=== PATIENT | female | born 1950 | race Caucasian/White ===

== ENCOUNTER 2017-09-25 11:21 | Observation (INO) ==
[2017-09-25 12:28] LABS: Basophils # 0.1 10*3/uL (0.0-0.2); Basophils % 0.7 % (0.0-0.8); Eosinophils # 0.2 10*3/uL (0.0-0.87); Eosinophils % 2.6 % (0.00-10.9); Hematocrit 33.9 VOL% (35.7-47.0); Hemoglobin 10.5 GM/DL (12.0-16.0); Immature Granulocytes % 0.7 %; Immature Granulocytes Absolute 0.05 #; Lymphocytes % 26.7 % (21.3-54.2); Mean Corpuscular Hemoglobin 32 PG (27-34); Mean Corpuscular Volume 103.4 FL (87-102); Mean Platelet Volume 10.7 FL (9.6-12.0); Monocytes # 0.5 10*3/uL (0.11-0.8); Monocytes % 6.6 % (1.7-12.7); Neutrophils # 4.6 10*3/uL (1.4-7.4); Neutrophils % 62.7 % (38.7-73.9); Platelet Count 330 T/CUMM (130-400); Red Blood Count 3.28 MC/CUMM (3.8-5.5); Red Cell Distribution Width 13.7 % (9.3-17.3); White Blood Count 7.4 T/CUMM (4-12)
[2017-09-25 12:31] LABS: Apearance,Urine CLEAR (Clear); Bilirubin,Urine Negative (Negative); Blood, Urine Small mg/dL (Negative); Glucose,Urine (UA) Negative (Negative); Ketones,Urine Negative (Negative); Nitrite,Urine Negative (Negative); Protein,Urine Negative; RBC,Urine 1 /HPF (0-4); Urine Color Straw (Yellow); Urine Specific Gravity 1.008 (1.001-1.035); Urine Urobilinogen < 2.0 EU/DL (0.2-1.0)
[2017-09-25 13:13] LABS: Alanine Aminotransferase 26 U/L (13-56); Albumin 4.2 G/DL (3.4-5.0); Alkaline Phosphatase 53 U/L (45-117); Aspartate Amino Transferase 15 U/L (0-37); Bilirubin,Total < 0.39 MG/DL (0.2-1.0); Blood Urea Nitrogen 64 MG/DL (7-18); Calcium 10.4 MG/DL (8.5-10.1); Glucose 96 MG/DL (74-106); Osmolality,Calculated 298.3 MOS/KG (273-304); Potassium 5.4 MMOL/L (3.5-5.1); Sodium 141 MMOL/L (136-145); T4 (Thyroxine) 8.4 UG/DL (4.7-13.3); Total Protein 7.3 G/DL (6.4-8.3)
[2017-09-25] MEDS ORDERED: ONDANSETRON 4 MG/2 ML VIAL IV PRN (13:45)
[2017-09-25] MEDS ORDERED: ACETAMINOPHEN 325 MG TABLET PO PRN (13:45)
[2017-09-25] MEDS: SODIUM CHLORIDE 0.45% 1,000 ML IV SCH ×4 (15:26→16:47)
[2017-09-25] MEDS ORDERED: SODIUM CHLORIDE 0.45% 1,000 ML IV ONE (17:00)
[2017-09-25 18:41] LABS: Barbiturates Screen,Urine Negative (Negative); Benzodiazepines Screen,Urine Negative (Negative); Cannabinoid Screen,Urine Negative (Negative); Opiate Screen,Urine Negative (Negative); Phencyclidine Screen,Urine Negative (Negative)
[2017-09-25] MEDS ORDERED: LITHIUM 300 MG CAPSULE PO SCH (21:00)
[2017-09-25] MEDS: CYANOCOBALAMIN 100 MCG TABLET PO SCH (21:12)
[2017-09-25] MEDS: FERROUS SULFATE 325 MG TABLET PO SCH (21:12)
[2017-09-25] MEDS: ASPIRIN 325 MG TABLET PO SCH (21:13)
[2017-09-25] MEDS: DOCUSATE SODIUM 100 MG CAPSULE PO SCH (21:13)
[2017-09-26] MEDS: SODIUM CHLORIDE 0.45% 1,000 ML IV SCH ×3 (00:40→16:06)
[2017-09-26] MEDS: CALCIUM (CARBONATE) 600 MG TABLET PO SCH (08:21)
[2017-09-26] MEDS: PANTOPRAZOLE 40 MG TABLET PO SCH (08:21)
[2017-09-26] MEDS: FENOFIBRATE 145 MG TABLET PO SCH (08:21)
[2017-09-26] MEDS: CLOPIDOGREL 75 MG TABLET PO SCH (08:21)
[2017-09-26] MEDS: DOCUSATE SODIUM 100 MG CAPSULE PO SCH ×2 (08:21→21:38)
[2017-09-26] MEDS: FERROUS SULFATE 325 MG TABLET PO SCH ×3 (08:21→21:38)
[2017-09-26] MEDS: OMEGA 3 ACID ETHYL ESTERS 1 GM CAPSULE PO SCH (08:21)
[2017-09-26] MEDS: LEVOTHYROXINE 112 MCG TABLET PO SCH (08:21)
[2017-09-26] MEDS: MULTIVITAMIN (CENTRUM) TABLET PO SCH (08:21)
[2017-09-26] MEDS: LISINOPRIL 20 MG TABLET PO SCH (08:21)
[2017-09-26 09:43] LABS: Calcium 9.1 MG/DL (8.5-10.1); Osmolality,Calculated 293.3 MOS/KG (273-304); Potassium 5.1 MMOL/L (3.5-5.1)
[2017-09-26] MEDS ORDERED: metFORMIN 500 MG TABLET PO SCH (17:00)
[2017-09-26] MEDS: CYANOCOBALAMIN 100 MCG TABLET PO SCH (21:37)
[2017-09-26] MEDS: ASPIRIN 325 MG TABLET PO SCH (21:39)
[2017-09-27] MEDS: SODIUM CHLORIDE 0.45% 1,000 ML IV SCH ×2 (01:56→09:37)
[2017-09-27 07:29] VITALS: BP 135/62
[2017-09-27] MEDS: FENOFIBRATE 145 MG TABLET PO SCH (08:23)
[2017-09-27] MEDS: CALCIUM (CARBONATE) 600 MG TABLET PO SCH (08:24)
[2017-09-27] MEDS: LEVOTHYROXINE 112 MCG TABLET PO SCH (08:24)
[2017-09-27] MEDS: FERROUS SULFATE 325 MG TABLET PO SCH (08:24)
[2017-09-27] MEDS: PANTOPRAZOLE 40 MG TABLET PO SCH (08:24)
[2017-09-27] MEDS: CLOPIDOGREL 75 MG TABLET PO SCH (08:24)
[2017-09-27] MEDS: LISINOPRIL 20 MG TABLET PO SCH (08:24)
[2017-09-27] MEDS: OMEGA 3 ACID ETHYL ESTERS 1 GM CAPSULE PO SCH (08:24)
[2017-09-27] MEDS: DOCUSATE SODIUM 100 MG CAPSULE PO SCH (08:24)
[2017-09-27] MEDS: MULTIVITAMIN (CENTRUM) TABLET PO SCH (08:24)
[2017-09-27 09:50] LABS: Calcium 9.2 MG/DL (8.5-10.1); Osmolality,Calculated 290.3 MOS/KG (273-304)
[2017-09-29] MEDS ORDERED: ERGOCALCIFEROL 50,000 UNIT CAPSULE PO SCH (09:00)
== END 2017-09-27 12:16 | disposition home or self-care (01) ==
LOC: N.EDINP 11:21 → N.ED 11:21 → N.2E 14:59
PROVIDERS: ADMIT Family Medicine; ATTEND Family Medicine